=== PATIENT | female | born 1970 | race Asian ===

== ENCOUNTER 2022-09-08 09:49 | Emergency (ER) | payer OTHER ==
[~2022-09-08] VITALS: Ht 157.5 cm; Wt 45.8 kg
[2022-09-08 10:02] VITALS: BP 104/68
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
--- NOTE | 2022-09-08 10:38 | NUR ---
Patient ambulated to bed 9, PRINCE Alves at bedside.
--- NOTE | 2022-09-08 10:39 | NUR ---
The patient's care was reviewed and supervised by EVA RENEE RN.
--- NOTE | 2022-09-08 10:40 | NUR ---
AMBULATED TO BED IN NO DISTRESS.
[2022-09-08] MEDS ORDERED: FAMOTIDINE 20 MG TAB PO ONE (10:55)
[2022-09-08] MEDS ORDERED: DEXAMETHASONE 10 MG/ML VIAL IM ONE (10:55)
--- NOTE | 2022-09-08 11:44 | NUR ---
Patient is resting on bed, respirations even and unlabored. No signs of distress. All needs met by staff.
[2022-09-08] MEDS ORDERED: PRED20TA5 PO (12:12)
[2022-09-08] MEDS ORDERED: CETI10SG1 PO (12:12)
[2022-09-08 12:39] VITALS: BP 101/68
--- NOTE | 2022-09-08 12:39 | NUR ---
Patient discharged with v/s stable. Written and verbal after care instructions given. Patient alert, oriented and verbalized understanding of instructions. Ambulatory with steady gait. All questions addressed prior to discharge. ID band removed. Patient advised to follow up with PMD. Rx of Zyrtec and Deltasone given. Opportunity to ask questions provided and answered.
== END 2022-09-08 12:39 | disposition home or self-care (01) ==
LOC: MED 09:49
DX: R21 Rash and other nonspecific skin eruption (principal)
CPT/HCPCS: 96372; 99283; J1100; Q0163